=== PATIENT | female | born 1950 | race Caucasian/White ===

== ENCOUNTER → 2020-11-17 | Outpatient (REF) | payer MEDICARE, MEDICAID ==
[~2020-11-17] MED LIST: ALLE25CA OR; BACL1TAB9 OR; COLA100C2 OR; DULCOLAX SUPPOSITORY AS ORDERED; ELOCON TOP; FLOVENT INH; HEPARIN BLADIN; HUMIRA SQ; IMIT100T OR; IMIT6INJ IJ; LASI40TA OR; LEVO125T OR; LOTEPREDNOL OP; NEUR800T OR; NEXI1CAP3 OR; NUCYNTA OR; OMNASPR; OXYGEN; PENNSAID TOP; PHEN 25 OR; PROP20EL OR; PSEUDOEPHEDRINE OR; RANTIDINE OR; RELPAX OR; SENN15TA2 OR; TOBRAMYCIN OP; VENTAER IN
[2020-11-17 18:00] LABS: APPEARANCE, URINE CLOUDY (CLEAR); BACTERIA, URINE AUTO 2+ (NEGATIVE); BILIRUBIN, URINE AUTO NEGATIVE (NEGATIVE); BLOOD, URINE BLOOD NEGATIVE (NEGATIVE); COLOR, URINE AMBER (YELLOW); GLUCOSE, URINE (UA) AUTO NEGATIVE (NEGATIVE); KETONE, URINE AUTO TRACE mg/dL (NEGATIVE); LEUKOCYTE ESTERASE, URINE AUTO 2+ (NEGATIVE); MUCUS, URINE SMALL (NEGATIVE); NITRITE, URINE AUTO NEGATIVE (NEGATIVE); PROTEIN, URINE AUTO 1+ mg/dL (NEGATIVE); RBC, URINE AUTO 2 /HPF (0-3); SPECIFIC GRAVITY URINE AUTO 1.026 (1.002-1.035); SQUAMOUS EPITHELIAL CELL UR AU 6 /HPF (0-6); WBC, URINE AUTO TNTC /HPF (0-3)
== END ==
LOC: M SMT 16:43
PROVIDERS: ATTEND Nurse Practitioner Family
DX: R82.89 Other abnormal findings on cytological and histological examination of urine (principal)